=== PATIENT | female | born 1965 | race Caucasian/White ===

== ENCOUNTER 2020-09-11 16:25 | Emergency (ER) | payer OTHER ==
[2020-09-11 16:31] VITALS: BP 140/79; PULSE 106; BMI 22.8
[2020-09-11] MEDS ORDERED: IBUPROFEN 400 MG TABLET (FP) PO ONE (16:37)
== END 2020-09-11 17:49 | disposition home or self-care (01) ==
LOC: FER 16:25
DX: S42.215A Unspecified nondisplaced fracture of surgical neck of left humerus, initial encounter for closed fracture (principal)
CPT/HCPCS: 73000-TC-LT-FY; 73030-TC-LT-FY; 73060-TC-LT-FY; 99284-25

== ENCOUNTER 2020-09-14 12:53 | Inpatient (IN) | payer OTHER ==
[2020-09-14 15:01] LABS: BASO % 0.4 % (0-2.0); EOS % 0.2 % (0-4.5); HEMATOCRIT 34.2 % (32.4-45.2); HEMOGLOBIN 11.5 GM/dL (10.7-15.3); LYMPH % 15.6 % (8-40); MCH 29.2 pg (25.7-33.7); MCHC 33.5 g/dl (32.0-36.0); MEAN CELL VOLUME 87.2 fl (80-96); MEAN PLT VOLUME 8.4 fl (7.5-11.1); NEUT % 78.8 % (42.8-82.8); PLATELET COUNT 283 K/MM3 (134-434); RBC 3.92 M/mm3 (3.60-5.2); RDW 13.2 % (11.6-15.6); WHITE BLOOD COUNT 9.5 K/mm3 (4.0-10.0)
[2020-09-14 15:07] LABS: INR 0.97 (0.83-1.09); PROTHROMBIN TIME (PATIENT) 11.8 SEC (9.7-13.0)
[2020-09-14 15:09] LABS: CHLORIDE 104 mmol/L (98-107); POTASSIUM 3.9 mmol/L (3.5-5.1); SODIUM 137 mmol/L (136-145)
[2020-09-14 15:10] LABS: ACTIVATED PTT 28.7 SECONDS (25.2-36.5)
[2020-09-14 15:11] LABS: CALCIUM 9.4 mg/dL (8.5-10.1)
[2020-09-14 15:12] LABS: ALBUMIN 4.1 g/dl (3.4-5.0); ANION GAP 7 MMOL/L (8-16); BLOOD UREA NITROGEN 14.1 mg/dL (7-18); CO2 26 mmol/L (21-32); GLUCOSE,RANDOM 106 mg/dL (74-106)
[2020-09-14 15:14] LABS: SGPT/ALT 19 U/L (13-61)
[2020-09-14 15:15] LABS: CREATININE 0.7 mg/dL (0.55-1.3); SGOT/AST 18 U/L (15-37)
[2020-09-14 15:16] LABS: BILIRUBIN,TOTAL 0.6 mg/dL (0.2-1); TOT PROT 7.5 g/dl (6.4-8.2)
[2020-09-14 15:17] LABS: ALK PHOS 81 U/L (45-117)
[2020-09-14] MEDS ORDERED: IBUPROFEN 600 MG TABLET (FP) PO ONE ×2 (18:35→18:36)
[2020-09-15 04:15] VITALS: BMI 21.9
[2020-09-15] MEDS ORDERED: ACETAMINOPHEN 1000 MG/100 ML VIAL (NON FORMULARY) IVPB ONE (06:48)
[2020-09-15 07:01] LABS: HEMATOCRIT 32.2 % (32.4-45.2); HEMOGLOBIN 10.9 GM/dL (10.7-15.3); MCH 29.8 pg (25.7-33.7); MCHC 33.8 g/dl (32.0-36.0); MEAN CELL VOLUME 87.9 fl (80-96); MEAN PLT VOLUME 8.2 fl (7.5-11.1); PLATELET COUNT 268 K/MM3 (134-434); RBC 3.67 M/mm3 (3.60-5.2); RDW 13.6 % (11.6-15.6); WHITE BLOOD COUNT 8.9 K/mm3 (4.0-10.0)
[2020-09-15 07:04] LABS: CHLORIDE 106 mmol/L (98-107); SODIUM 141 mmol/L (136-145)
[2020-09-15 07:07] LABS: ALBUMIN 3.5 g/dl (3.4-5.0); ANION GAP 7 MMOL/L (8-16); CO2 29 mmol/L (21-32); MAGNESIUM 2.2 mg/dL (1.8-2.4)
[2020-09-15 07:08] LABS: CALCIUM 8.7 mg/dL (8.5-10.1); GLUCOSE,RANDOM 94 mg/dL (74-106)
[2020-09-15 07:09] LABS: BLOOD UREA NITROGEN 11.6 mg/dL (7-18)
[2020-09-15 07:10] LABS: CREATININE 0.7 mg/dL (0.55-1.3); SGOT/AST 16 U/L (15-37); SGPT/ALT 17 U/L (13-61)
[2020-09-15 07:12] LABS: CHOLESTEROL 198 mg/dL (50-200); PHOSPHOROUS 4.1 mg/dL (2.5-4.9); TRIGLYCERIDES 63 mg/dL (0-150)
[2020-09-15 07:13] LABS: BILIRUBIN,TOTAL 0.7 mg/dL (0.2-1); LDL CHOLESTEROL (ONLY SJRH) 119 mg/dL (5-100)
[2020-09-15 07:14] LABS: ALK PHOS 74 U/L (45-117)
[2020-09-15 07:15] LABS: HDL CHOLESTEROL 73 mg/dL (40-60)
[2020-09-15] MEDS ORDERED: LACTATED RINGERS SOLUTION 1,000 ML/1,000 ML INFUS.BAG IV SCH (08:00)
[2020-09-15] MEDS: ACETAMINOPHEN 325 MG TABLET (FP) PO PRN ×2 (08:19→14:36)
[2020-09-15] MEDS ORDERED: DOBUTAMINE HCL 100,000 MCG in DEXTROSE 5%-WATER - 92 ML IVPB ONE (10:45)
[2020-09-15 14:27] VITALS: BP 110/69; PULSE 86; TEMP 97.7
== END 2020-09-15 16:45 | disposition home or self-care (01) | DRG 315 ==
LOC: JER 12:53 → JERBED 14:37 → J4S 23:26 → OBSVTOIN 23:50
PROVIDERS: ADMIT Hospitalist; ATTEND Internal Medicine
DX: R94.31 Abnormal electrocardiogram [ECG] [EKG] (principal); R00.0 Tachycardia, unspecified; S42.212A Unspecified displaced fracture of surgical neck of left humerus, initial encounter for closed fracture; I45.10 Unspecified right bundle-branch block; W01.0XXA Fall on same level from slipping, tripping and stumbling without subsequent striking against object, initial encounter; Y92.488 Other paved roadways as the place of occurrence of the external cause
CPT/HCPCS: 36415; 71045-TC-FY; 71275-TC; 80053; 80061; 82550; 83036; 83721; 83735; 84100; 84443; 84484; 85025; 85027; 85610; 85730; 93005; 93010; 93306-TC; 93351; 99285-25; C9803; G0378; Q9967; U0003